=== PATIENT | male | born 1945 | race Caucasian/White ===

== ENCOUNTER → 2018-03-08 | Outpatient (CLI) | payer OTHER ==
[~2018-03-08] MED LIST: ALBU90AE INH; ASPI-496 PO; BETA15CR4 TP; FLUT10.6 INH; HYDR12.53 PO; IBUP-1221 PO; LORA10TA3 PO; LOSA50TA7 PO; METO25TA2 PO; MULT-717 PO; OMEP-110 PO; OMNIPAQUE 350 MG/ML, 75ML BOTTLE ONE; SIMV20TA3 PO; TRAZ-137 PO; VIT C PO; ZINC PO; [UNRECOGNIZED DRUG - CODE] OP
== END | disposition home or self-care (01) ==
LOC: CFH 10:33
PROVIDERS: ATTEND Nurse Practitioner Family
DX: J98.11 Atelectasis (principal); J98.6 Disorders of diaphragm; Z77.090 Contact with and (suspected) exposure to asbestos; J45.909 Unspecified asthma, uncomplicated; R93.89 Abnormal findings on diagnostic imaging of other specified body structures
CPT/HCPCS: 71260; Q9967